=== PATIENT | female | born 1955 | race African-American/Black ===

== ENCOUNTER 2017-07-18 00:02 | Observation (INO) | payer MEDICARE, MEDICAID ==
[~2017-07-18] VITALS: Ht 165.1 cm; Wt 79.8 kg
[~2017-07-18 00:02] MED LIST: ADLT ASA LOW81 MG PO; ASACOL PO; ASPIRIN LOW DOS81 M1 PO; ASPIRIN325 MG PO; AUGMENTIN500TAB PO; BUDESONIDE3 MG/24 HR PO; CALCIUM 600-D1 TAB PO; CIPROFLOXACN500 MG PO; DICLOFENAC SODI75 MG PO; DICLOFENAC75 MG PO; DIFLUCAN100 M1 PO; ENALAPRIL10 MG PO; ESTRACE2 MG PO; FERROUS SULF325 M3 PO; FISH OIL1000 MG PO; FLEXERIL PO; FLEXERIL10 MG PO; LESCOL40 MG PO; LORTAB 7.5 PO; LORTAB 7.5-3251 TAB PO; LORTAB 7.57.5 MG PO; LOTRISONE EX; MEDDOSEPAK PO; METOPROL TAR50 MG PO; METOPROLOL SUCC50 MG PO; METRONIDAZOL500 MG PO; MULTI FOR HER 50+ PO; OMEPRAZOLE20 MG PO; PRAVASTATIN20 MG PO; PREVACID30 M1 PO; TIZANIDINE4 MG PO; TRIAMCINOLON0.11 EX; ULTRAM50 M1 PO; VICODIN ES1 TAB OR; VICODIN ES1 TAB PO; VISTARIL PO; WAL-FEX D 1212 HOUR PO
[2017-07-18 00:53] LABS: ALKALINE PHOSPHATASE 91 u/l (38-126); ANION GAP 14 (6-22 (CALC)); BILIRUBIN, TOTAL 0.4 mg/dL (0.0-1.4); BUN 15 mg/dL (8-23); BUN/CREATININE RATIO 22 (12-20 (CALC)); CARBON DIOXIDE 24 mmol/l (22-30); CHLORIDE 108 mmol/l (95-108); CREATININE 0.7 mg/dL (0.5-1.0); GFR > 60 ML/MIN (>=60 (CALC)); GFR FOR AFR.AMER. > 60 ML/MIN (>=60 (CALC)); POTASSIUM 3.5 mmol/l (3.5-5.1); SGOT/AST 28 u/l (9-36); SGPT/ALT 30 u/l (11-66); SODIUM 142 mmol/l (137-146); TOTAL PROTEIN 6.9 g/dL (6.3-8.2)
[2017-07-18 00:54] LABS: HEMATOCRIT 36.6 % (37.0-47.0); HEMOGLOBIN 11.9 g/dl (12.0-16.0); IMMATURE GRANULOCYTES 0.4 % (0.0-1.0); MEAN CELL VOLUME 82.6 fL CALC (80.0-100.0); MEAN CORPUSCULAR HGB 26.9 pG CALC (26.0-32.0); MEAN CORPUSCULAR HGB CONC 32.5 g/L CALC (32.0-36.0); NEUT# 3.56 thou/uL (2.00-7.15); RED BLOOD COUNT 4.43 mill/uL (4.20-5.60); RED CELL DISTRI WIDTH 14.6 % (11.5-15.5)
[2017-07-18 00:55] LABS: ACT PARTIAL THROMBO TIME 23.1 SECONDS (20.0-32.5); INTERNATIONAL NORMALIZED RATIO 0.9 RATIO (0.7-1.3); PROTHROMBIN TIME 10.1 SECONDS (9.0-12.5)
[2017-07-18 01:07] LABS: MYOGLOBIN 41 ng/mL (0 - 62)
[2017-07-18 03:00] VITALS: BP 112/61
[2017-07-18 06:17] LABS: ALBUMIN 3.6 g/dL (3.2-5.0); ALKALINE PHOSPHATASE 93 u/l (38-126); ANION GAP 12 (6-22 (CALC)); BILIRUBIN, TOTAL 0.3 mg/dL (0.0-1.4); BUN 13 mg/dL (8-23); BUN/CREATININE RATIO 18 (12-20 (CALC)); CALCULATED LDLCHOLESTEROL 120 mg/dL (62-129 (CALC)); CARBON DIOXIDE 26 mmol/l (22-30); CHLORIDE 107 mmol/l (95-108); CHOLESTEROL HDL RATIO 3.6 (<4.4 (CALC)); CREATININE 0.7 mg/dL (0.5-1.0); GFR > 60 ML/MIN (>=60 (CALC)); GFR FOR AFR.AMER. > 60 ML/MIN (>=60 (CALC)); HDL CHOLESTEROL 59 mg/dL (>=40); POTASSIUM 3.8 mmol/l (3.5-5.1); SGOT/AST 28 u/l (9-36); SGPT/ALT 32 u/l (11-66); SODIUM 141 mmol/l (137-146); TOTAL CHOLESTEROL 211 mg/dl (0-199); TOTAL PROTEIN 6.4 g/dL (6.3-8.2); TOTAL TRIGLYCERIDES 163 mg/dl (30-149); VLDL CHOLESTROL 33 mg/dl (1-41 (CALC))
[2017-07-18 07:42] VITALS: BP 137/81
[2017-07-18 11:30] VITALS: BP 142/82
[2017-07-18 16:00] VITALS: BP 146/77
== END 2017-07-18 17:33 | disposition home or self-care (01) ==
LOC: ED 00:02 → ED-I 01:33 → ED 01:45 → ICU 01:46 → UNDODEPER 02:21 → ICU 17:33
PROVIDERS: Emergency Medicine; ADMIT Internal Medicine Geriatric Medicine; ATTEND Internal Medicine Geriatric Medicine
DX: R07.9 Chest pain, unspecified (principal); M25.519 Pain in unspecified shoulder; M54.5 Low back pain; G89.29 Other chronic pain; M19.90 Unspecified osteoarthritis, unspecified site; K27.9 Peptic ulcer, site unspecified, unspecified as acute or chronic, without hemorrhage or perforation; I10 Essential (primary) hypertension; E78.5 Hyperlipidemia, unspecified; K21.9 Gastro-esophageal reflux disease without esophagitis; M85.80 Other specified disorders of bone density and structure, unspecified site; F41.1 Generalized anxiety disorder; R06.02 Shortness of breath

== ENCOUNTER 2017-12-15 05:31 | Emergency (ER) | payer MEDICARE, MEDICAID ==
[~2017-12-15] VITALS: Ht 165.1 cm; Wt 80.0 kg
[2017-12-15] MEDS ORDERED: TRAMADOL HCL50 MG PO (06:38)
[2017-12-15 07:02] VITALS: BP 132/68
== END 2017-12-15 06:55 | disposition home or self-care (01) ==
LOC: ED 05:31
PROC: 3E0U3BZ Introduction of Anesthetic Agent into Joints, Percutaneous Approach (ICD-10-PCS; principal; 2017-12-15)
PROC: 3E0U33Z Introduction of Anti-inflammatory into Joints, Percutaneous Approach (ICD-10-PCS; 2017-12-15)
DX: M25.561 Pain in right knee (principal); M17.11 Unilateral primary osteoarthritis, right knee; I10 Essential (primary) hypertension; E78.5 Hyperlipidemia, unspecified; W01.0XXA Fall on same level from slipping, tripping and stumbling without subsequent striking against object, initial encounter; Y92.009 Unspecified place in unspecified non-institutional (private) residence as the place of occurrence of the external cause

== ENCOUNTER 2018-05-15 10:02 | Inpatient (IN) | payer MEDICARE, MEDICAID ==
[~2018-05-15] VITALS: Ht 165.1 cm; Wt 81.2 kg
[~2018-05-15 10:02] MED LIST changes: +TRAMADOL HCL50 MG PO
[2018-05-15] MEDS ORDERED: FISH OIL PO (14:33)
[2018-05-15] MEDS ORDERED: OMEGA PO (14:33)
[2018-05-15] MEDS ORDERED: PRAVASTATIN SOD10 MG PO (14:34)
[2018-05-15] MEDS ORDERED: TOPROL XL25 MG PO (14:34)
[2018-05-15] MEDS ORDERED: OMEGA 3 GUMMIES PO (14:38)
[2018-05-15] MEDS ORDERED: TIZANIDINE HCL4 M1 PO (14:38)
[2018-05-15] MEDS ORDERED: OMEPRAZOLE20 M2 PO (14:39)
[2018-05-25] VITALS (8 sets, daily range): BP systolic 109–153; BP diastolic 48–83
--- NOTE | 2018-05-25 14:05 | NUR ---
PT WAS TOO GROGGY, REFUSED TO PARTICIPATE WITH P.T. ASSESSMENT.
--- NOTE | 2018-05-25 15:01 | NUR ---
Clarified patients metoprolol medication. Patient stated she was on Toprol 25 mg once daily.
--- NOTE | 2018-05-25 15:33 | NUR ---
BEDSIDE REPORT RECEIVED FROM MARY ANN HOLMAN ARRIVED ON UNIT VIA STRETCHER @ 1115 AND TRANSFERRED TO BED. ORIENTED AND LETHARGIC, ORIENTED TO ROOM AND CALL ZIMMERMAN. DRESSING TO RIGHT KNEE CDI, LEG ELEVATED ON PILLOWS, ICE PACK PLACED, SCD PLACED. VITAL SIGNS BEING MEASURED AND RECORDED, WILL CONTINUE TO MONITOR.
--- NOTE | 2018-05-25 15:37 | NUR ---
ASSISTED WITH BLADDRE ELIMINATION X 4 SINCE ARRIVAL TO UNIT, CALL ZIMMERMAN IN REACH.
--- NOTE | 2018-05-25 20:30 | NUR ---
ASSESSMENT IS COMPLETED: IV SITE IS FREE FROM REDNESS OR EDEMA. HR IS REG,PULSES ARE STRONG X4, ABD IS SOFT WITH ACTIVE BS. BREATH SOUNDS ARE CLEAR, BILATERALLY. DRESSING ON R KNEE IS CDI. SCD'S IN PLACE. C/O NAUSEA AT BEGINNING OF SHIFT WAS PREVIOUSLY MEDICATED. CONTINUE TO OBSERVE AND MONITOR.
--- NOTE | 2018-05-26 00:15 | NUR ---
PT IS RELAXING IN BED WITH NO DISTRESS NOTED. IV SITE IS FREE FROM REDNESS OR EDEMA. CONTINUE TO OBSERVE AND MONITOR.
[2018-05-26 00:29] VITALS: BP 153/69
--- NOTE | 2018-05-26 04:12 | NUR ---
PT IS RELAXING GAVE PAIN MEDICATION EARLIER ., IV SITE IS FREE FROM REDNESS OR EDEMA.
[2018-05-26 04:45] VITALS: BP 112/70
[2018-05-26 05:13] LABS: HEMATOCRIT 32.9 % (37.0-47.0); HEMOGLOBIN 10.6 g/dl (12.0-16.0); IMMATURE GRANULOCYTES 0.3 % (0.0-5.0); MEAN CORPUSCULAR HGB 26.4 pG CALC (26.0-32.0); MEAN CORPUSCULAR HGB CONC 32.2 g/L CALC (32.0-36.0); NEUT# 5.13 thou/uL (2.00-7.15); RED BLOOD COUNT 4.01 mill/uL (4.20-5.60); RED CELL DISTRI WIDTH 14.1 % (11.5-15.5)
[2018-05-26 05:31] LABS: ALBUMIN 3.3 g/dL (3.2-5.0); ALKALINE PHOSPHATASE 67 u/l (38-126); ANION GAP 13 (6-22 (CALC)); BILIRUBIN, TOTAL 0.5 mg/dL (0.0-1.4); BUN 14 mg/dL (8-23); BUN/CREATININE RATIO 27 (12-20 (CALC)); CARBON DIOXIDE 27 mmol/l (22-30); CHLORIDE 99 mmol/l (95-108); CREATININE 0.5 mg/dL (0.5-1.0); GFR > 60 ML/MIN (>=60 (CALC)); GFR FOR AFR.AMER. > 60 ML/MIN (>=60 (CALC)); POTASSIUM 3.7 mmol/l (3.5-5.1); SGOT/AST 17 u/l (9-36); SODIUM 136 mmol/l (137-146); TOTAL PROTEIN 5.9 g/dL (6.3-8.2)
--- NOTE | 2018-05-26 07:20 | NUR ---
PT REPORT RECIEVED FROM GARRET FINCH. PT RESTING. NO S/S OF DISTRES. CALL LIGHT IN REACH. WILL CONTINUE TO MONITOR
[2018-05-26 08:11] VITALS: BP 137/54
--- NOTE | 2018-05-26 08:11 | NUR ---
PT A/O X3. SPEECH IS CLEAR. RESP EVEN AND UNLABORED. LUNG SOUNDS CLEAR. BOWEL SOUNDS ACTIVE X4. PT C/O NAUSEA. MEDICATED W/ 4 MG ZOFRAN IV. PT ALSO C/O THROBBING RT KNEE PAIN. MEDICATED W/ 1 MG DILAUDID IV. ICE APPLIED TO RT KNEE. STRONG RADIAL AND PEDAL PULSES. #20 LW LR @100. SITE HEALTHY. PT DENIES ANY FURTHER NEEDS. POC DISCUSSED. SAFETY PRECAUTIONS IN PLACE. CALL LIGHT IN REACH. WILL CONTINUE TO MONITOR.
--- NOTE | 2018-05-26 08:26 | NUR ---
DR. NAVA IN TO SEE PT
--- NOTE | 2018-05-26 14:38 | NUR ---
Pt was OOb in chair, stated she had been sittin for about 2 hours. She requested [facility] chair. Transfer to [facility] with RW and CGA. Pt required instructions in walker use, she did not bear much wt onto RLE. Pt stood with min assist and use walker move back to bed. Sit to supine with kenny min assist of RLE. Pt performed AAROM and isometrics in bed to RLE. Pt positioned appropriately with compression on LLE, call strong in reach, family in visiting.
--- NOTE | 2018-05-26 15:02 | NUR ---
PT MEDICATED W/ 2 PERCOCET PO FOR 10 OUT OF 10 PAIN TO RT KNEE. REPOSITIONED FOR COMFORT. PT DENIES ANY FURTHER NEEDS. CALL LIGHT IN REACH. WILL CONTINUE TO MONITOR.
--- NOTE | 2018-05-26 16:24 | NUR ---
PT SITTING IN BED LISTENING TO MUSIC. PT DOES HAVE MINIMAL PAIN TO RT KNEE. ICE APPLIED AND REPOSITIONED FOR COMFORT. PT DENIES ANY FURTHER NEEDS. CALL LIGHT IN REACH. BSC NEAR BED. WILL CONTINUE TO MONITOR.
[2018-05-26 16:52] VITALS: BP 157/85
[2018-05-26 19:10] VITALS: BP 155/76
--- NOTE | 2018-05-26 19:45 | NUR ---
ASSESSMENT IS COMPLETED: IV SITE IS FREE FROM REDNESS OR EDEMA. HR IS REG,PULSES ARE STRONG X4, ABD IS SOFT WITH ACTIVE BS. HR IS REG, BREATH SOUNDS ARE CLEAR, BILATERALLY, DRESSING ON R KNEE IS CDI. SCD'S IN PLACE. CONTINUE TO OBSERVE AND MONITOR.
[2018-05-27 00:05] VITALS: BP 87/43
--- NOTE | 2018-05-27 00:30 | NUR ---
PT IS RESTING IN BED WITH NO DISTRESS NOTED. IV SITE IS FREE FROM REDNESS OR EDEMA NOTED. CONITUE TO OSBERVE AND MONITOR.
--- NOTE | 2018-05-27 04:10 | NUR ---
PT IS RESTING IN BED WITH NO DISTRESS NOTED. IV SITE IS FREE FROM REDNESS OR EDEMA.
[2018-05-27 04:15] VITALS: BP 102/55
[2018-05-27 05:39] LABS: HEMATOCRIT 31.4 % (37.0-47.0); IMMATURE GRANULOCYTES 0.4 % (0.0-5.0); MEAN CELL VOLUME 83.3 fL CALC (80.0-100.0); MEAN CORPUSCULAR HGB 26.5 pG CALC (26.0-32.0); MEAN CORPUSCULAR HGB CONC 31.8 g/L CALC (32.0-36.0); NEUT# 5.67 thou/uL (2.00-7.15); RED BLOOD COUNT 3.77 mill/uL (4.20-5.60); RED CELL DISTRI WIDTH 14.3 % (11.5-15.5)
[2018-05-27 06:16] LABS: ANION GAP 13 (6-22 (CALC)); BUN 18 mg/dL (8-23); BUN/CREATININE RATIO 18 (12-20 (CALC)); CARBON DIOXIDE 29 mmol/l (22-30); CHLORIDE 97 mmol/l (95-108); GFR 56 ML/MIN (>=60 (CALC)); GFR FOR AFR.AMER. > 60 ML/MIN (>=60 (CALC)); POTASSIUM 4.1 mmol/l (3.5-5.1); SODIUM 136 mmol/l (137-146)
--- NOTE | 2018-05-27 07:00 | NUR ---
SHIFT REPORT, PT AWAKE AND ALERT RESTING IN BED, NO C/O DISCOMFORT, DRESSING TO RIGHT KNEE CDI, CALL ZIMMERMAN IN REACH.
--- NOTE | 2018-05-27 12:00 | NUR ---
SITTING UP IN RECLINER, NAUSEA IMPROVING, WILL CONTINUE TO MONITOR.
[2018-05-27 12:40] VITALS: BP 137/57
--- NOTE | 2018-05-27 15:07 | NUR ---
AM note: Pt was supine in bed having finished breakfast. Pt reported she is not taking pain medicine since 3 AM as they have been making her sick. Pt acknolwedged that she has been performing her HEP program that was given to her yesterday (05-26-18). Pt was eager to begin walking and was educated on proper S<>S techniwue as well as RW usage. Pt with noted 15-70 deg ROM. Pt was cued on S<>S for hand placement on her bed as well as on the walker while using it. Pt required MIN A to perform proper S<>S. She was able to ambualte 35 ft x 2 with a rest break in between for 20 seconds. Pt was returned to her bed side chair and her call strong was provided. Pt ed on HEP program and performing bed sheet heel slides in bed or in chair. PM note: Pt was supine in her bed, reported that she was feeling better and she was performing her HEP program.Pt ed on S<>S and was CGA to perform safely, VC's used for correction. Pt was able to ambulate 50 ft x 2 with a rest break of 10 seconds in between. Pt wished to return to her bed for a nap. Pt was placed supine in her bed and was able to transfer from stand to supine with CGA, pt was in her bed supine with call strong and phone by her side. Pt to continue with HEP program and gait training.
[2018-05-27 15:15] VITALS: BP 114/51
--- NOTE | 2018-05-27 16:00 | NUR ---
ASSISTED TO BSC THEN BACK TO BED, PAIN CONCERNS ADDRESSED, CALL ZIMMERMAN IN REACH.
[2018-05-27 19:05] VITALS: BP 146/75
--- NOTE | 2018-05-27 19:30 | NUR ---
REPORT FROM SIMON LEIJA. PT SITTING UP IN BED WITH RIGHT LEG ELEVATED ON PILLOW. PT DENIES ANY PAIN OR DISCOMFORT. DRESSING CDI, REMOVED AT THIS TIME. INCISION SECURED WITH DERMABOND, NO DRAINAGE OR REDNESS NOTED. +1 PITTING EDEMA NOTED TO RLE. IV SITE APPEARS HEALTHY. PT DENIES ANY NAUSEA. DISCUSSED POC. PT VERBALIZED UNDERSTANDING. CALL LIGHT WITHIN REACH. WILL CONTINUE TO MONITOR.
--- NOTE | 2018-05-27 21:08 | NUR ---
PT REQUEST ICE PACK FOR RIGHT KNEE AND CRACKERS. PT DENIES ANY NAUSEA AT THIS TIME. ENCOURAGED PT TO KEEP RLE ELEVATED. CALL LIGHT WTIHIN REACH. WILL CONTINUE TO MONITOR.
[2018-05-27 23:35] VITALS: BP 83/50
--- NOTE | 2018-05-28 03:34 | NUR ---
PT ASSISTED TO BSC. PT VOIDED WITHOUT DIFFICULTY. ASSISTED BACK TO BED X1 PERSON ASSIST. PT DENIES ANY PAIN AT THIS TIME. CALL LIGHT WITHIN REACH. WILL CONTINUE TO MONITOR.
[2018-05-28 04:05] VITALS: BP 111/64
--- NOTE | 2018-05-28 08:13 | NUR ---
SHIFT CHANGE REPORT, PT AWAKE ALERT AND ORIENTED SITTING UP IN RECLINER. DENIES PAIN AT THIS TIME, SURGICAL INCISION TO RIGHT KNEE EXERCISER WITH DERMABOND INTACT, ALL NEEDS ADDRESSED, CALL ZIMMERMAN IN REACH.
[2018-05-28 08:24] VITALS: BP 136/71
--- NOTE | 2018-05-28 09:13 | NUR ---
Patient found resting in recliner and in agreement to participate in therapeutic exercises and gait training. Pt. instructed on and performed AROM of toes, ankle PF/DF, quad sets, LAQ exercises, low marching and heel slides x 10 repetitions each with direct supervision and continual verbal/tactile cues. Sit to stand to RW done with CGA, good safety awareness is noted. Pt. ambulated x 50 feet using RW and with CGA x1 demonstarting step to pattern. Verbal cues given to correct stooped posture. Patient took 2 minute seated rest period followed by gait training x 50 feet using RW and with CGA x1 this time with verbal cues for step through gait pattern. No LOB and no SOB noted. Pt. returned to sitting in recliner with call light and bedside table within reach. Patient left without questions or concerns.
[2018-05-28 11:15] VITALS: BP 75/48
--- NOTE | 2018-05-28 11:19 | NUR ---
AMBULATED TO END OF HALLWAY WITH PHYSICAL THERAPIST AND BACK TO ROOM, RELAXING IN RECLINER AT THIS TIME.
--- NOTE | 2018-05-28 14:02 | NUR ---
Pt seen this pm for treatment. She was OOB in chair and stated she did not like being in bed because it makes you weak. Pt performed A/AAROM to RLE in recline and sitting positions. She stood and ambulated with standard walker/CGA x 75' with verrbal cues for proper step lenght. Pt wt bearing on RLE much better. Pt repositioned in recliner and call strong/bedside tray in reach.
[2018-05-28 14:50] VITALS: BP 80/51
--- NOTE | 2018-05-28 16:00 | NUR ---
RELAXING IN BED, TOLERATING SOLID MEALS WELL, PAIN CONTROLLED, ALL NEEDS MET/ADDRESSED.
[2018-05-28 19:00] VITALS: BP 141/66
--- NOTE | 2018-05-28 19:15 | NUR ---
REPORT FROM SIMON LEIJA. PT SITTING UP IN BED WITH RLE ELEVATED ON PILLOW. PT ALERT AND ORIENTED. IV SITE APPEARS HEALTHY. INCISION SECURED WITH DERMABOND NO REDNESS OR DRAINAGE NOTED. SCD ON LLE. C/O SOME DISCOMFORT IN RIGHT KNEE. PT ASSISTED UP TO BSC. PT VOIDED 250 CLEAR YELLOW URINE AT THIS TIME. ASSISTED BACK TO BED AND REPOSITIONED. DISCUSSED POC. PT VERBALIZED UNDERSTANDING. CALL LIGHT WITHIN REACH. WILL CONTINUE TO MONITOR.
--- NOTE | 2018-05-28 23:30 | NUR ---
PT RESTING IN BED WITH EYES CLOSED. RLE ELEVATED ON PILLOW. NO S/S OF PAIN OR DISCOMFORT. CALL LIGHT WITHIN REACH. WILL CONTINUE TO MONITOR.
[2018-05-29 00:30] VITALS: BP 108/51
[2018-05-29 04:14] VITALS: BP 98/60
--- NOTE | 2018-05-29 04:30 | NUR ---
PT ASSISTED TO BSC. PT VOIDED WITHOUT DIFFICULTY. ASSISTED BACK TO BED RLE ELEVATED ON PILLOW. PT C/O PAIN 6-10 RLE. WILL MEDICATED WHEN NEXT AVAILABLE DUE. CALL LIGHT WITHIN REACH. WILL CONTINUE TO MONITOR.
[2018-05-29 08:05] VITALS: BP 134/65
--- NOTE | 2018-05-29 08:20 | NUR ---
PT IS SITTING IN RECLINER. ASESSMENT DONE. RESPS EVEN AND UNLABORED. PT IS A&O X3. PT DENIES PAIN AT THIS TIME. RIGHT KNEE DERMANDOND IN PLACE CDI. PT DENIES ANY NEEDS AT THIS TIME. CALL LIGHT IN REACH.
--- NOTE | 2018-05-29 11:34 | NUR ---
PHYSICAL THERAPY AMBULATING PT IN THE HALLWAY. PT USING WALKER AND NO S/S OF DISTRESS NOTED.
--- NOTE | 2018-05-29 12:30 | NUR ---
Pt. found resting in recliner this morning and in agreement to proceed with therapeutic exercises and gait training. In sitting pt. performed AROM toes, ankle PF/DF, quad. sets, LAQ exercises, and AAROM heel slides x 10 repetitions each with direct supervision and verbal encouragement. Gait belt applied prior to gait training. Sit to stand done safely with supervision. Pt. ambulated x80 feet using standard walker with CGA x1 and verbal cues for step through gait pattern. Good postural awareness is noted. No LOB and no SOB noted. Stand to sit done again with supervision. Pt. left resting comfortably in recliner with LE's elevated, attending nurse informed of pts. request for pain medications and lunch. No further questions or concerns from pt. voiced. Bedside table left within reach, call light reviewed and also left within reach.
--- NOTE | 2018-05-29 14:10 | NUR ---
Pt. seen this PM for therapeutic exercises and gait training. Pt. reports working on R heel slides a few minutes ago. In recliner exercises reviewed and performed included AROM toes, ankle PF/DF, Quad sets, AAROM heel slides with use of towel and seated marching x 10 repetitions. Seated R knee flexion measured 70 degrees. Sit to stand with supervision. Pt. ambulated hallway x100 feet using standard walker and with light CGA x1, no LOB. Pt. requested use of BSC once back in room, stand to sit done safely with supervision. Nurse informed of same, pt. instructed to call nurse for assistance with getting up from BSC and [facility]. Pt. verbalized understanding and was left without questions or concerns. Attending DIRECTOR DIETETICS DEPARTMENT also informed.
[2018-05-29 15:49] VITALS: BP 132/76
--- NOTE | 2018-05-29 16:30 | NUR ---
PT SITTING IN THE RECLINER. ASISSTED PT TO THE BSC. FAMILY IN ROOM . PT DENIES ANY OTHER NEEDS AT THIS TIME. CALL LIGHT IN REACH.
--- NOTE | 2018-05-29 19:00 | NUR ---
RECEIVED REPORT FROM DAY NURSE. PT RESTING IN BED WATCHING TV. NO NEEDS AT THIS TIME. CALL ZIMMERMAN IN REACH. WILL CONTINUE TO MONITOR.
[2018-05-29 20:20] VITALS: BP 184/76
--- NOTE | 2018-05-29 21:18 | NUR ---
PT RESTING IN BED WATCHING TV AND TALKING TO SOMEONE ON SPEAKER PHONE. ASSESMENT COMPLETED AT THIS TIME (SEE INTERVENTIONS) LUNG SOUNDS CLEAR, BOWEL SPOND ACTIVE, HEART RATE NORMAL, PT C/O PAIN 9/10 PAIN. TRACE EDEMA NOTED TO RIGHT LEG. PT MEDICATED PER ORDER FOR PAIN. NO OTHER NEEDS AT THIS TIME. CALL ZIMMERMAN IN REACH. WILL CONTINUE TO MONITOR.
[2018-05-29 22:29] VITALS: BP 131/74
--- NOTE | 2018-05-30 | NUR ---
PT RESTING QUIETLY IN BED. NO NEEDS AT THIS TIME. CALL ZIMMERMAN IN REACH. WILL CONTINUE TO MONITOR.
[2018-05-30 00:09] VITALS: BP 128/76
--- NOTE | 2018-05-30 04:00 | NUR ---
PT APPEARS TO BE ASLEEP. RESP EVEN AND UNLABORED. CALL ZIMMERMAN IN REACH. WILL CONTINUE TO MONITOR.
[2018-05-30 04:08] VITALS: BP 119/61
[2018-05-30 06:29] LABS: HEMATOCRIT 25.8 % (37.0-47.0); HEMOGLOBIN 8.1 g/dl (12.0-16.0); IMMATURE GRANULOCYTES 0.2 % (0.0-5.0); MEAN CELL VOLUME 83.5 fL CALC (80.0-100.0); MEAN CORPUSCULAR HGB 26.2 pG CALC (26.0-32.0); MEAN CORPUSCULAR HGB CONC 31.4 g/L CALC (32.0-36.0); NEUT# 3.58 thou/uL (2.00-7.15); RED BLOOD COUNT 3.09 mill/uL (4.20-5.60); RED CELL DISTRI WIDTH 14.2 % (11.5-15.5)
[2018-05-30 06:40] LABS: ANION GAP 11 (6-22 (CALC)); BUN 18 mg/dL (8-23); BUN/CREATININE RATIO 31 (12-20 (CALC)); CARBON DIOXIDE 28 mmol/l (22-30); CHLORIDE 102 mmol/l (95-108); CREATININE 0.6 mg/dL (0.5-1.0); GFR > 60 ML/MIN (>=60 (CALC)); GFR FOR AFR.AMER. > 60 ML/MIN (>=60 (CALC)); MAGNESIUM 1.8 mg/dL (1.6-2.3); POTASSIUM 3.6 mmol/l (3.5-5.1); SODIUM 137 mmol/l (137-146)
--- NOTE | 2018-05-30 08:10 | NUR ---
SHIFT REPORT, PT AWAKE ALERT AND ORIENTED HAVING SHOWER AT THIS TIME, WILL CONTINUE TO MONITOR.
[2018-05-30 08:57] VITALS: BP 135/71
--- NOTE | 2018-05-30 11:35 | NUR ---
SITTING UP IN RECLINER, ALL NEEDS MET/ADDRESSED, CALL ZIMMERMAN IN REACH
[2018-05-30] MEDS ORDERED: ASPIRIN EC325 MG PO (12:17)
[2018-05-30] MEDS ORDERED: PERCOCET 10/31 COMBO PO (12:19)
[2018-05-30 16:14] VITALS: BP 139/74
--- NOTE | 2018-05-30 16:52 | NUR ---
REPORT CALLED TO LISS NIEVES @ [facility], PT IS STILL AWAITING TRANSPORTATION [facility] WAS DELAYED FOR HER 1300 TRIP DUE TO ANOTHER URGENT SITUATION THAT HAD TO BE ADDRESSED, WILL CONTINUE TO MONITOR.
--- NOTE | 2018-05-30 19:22 | NUR ---
Discharge instructions given. Patient verbalizes understanding of same. Discharged in fair condition via Medical Transport to *Other with *Other. All belongings sent with pt WITH [facility] TO [facility]. MEDICAL PACKAGE ALSO GIVEN [facility].
== END 2018-05-30 19:29 | DRG 470 ==
LOC: MS2 05-25 05:49
PROVIDERS: Internal Medicine Geriatric Medicine; Nurse Practitioner Family; ADMIT Orthopaedic Surgery; ATTEND Internal Medicine Nephrology
PROC: 0SRC0J9 Replacement of Right Knee Joint with Synthetic Substitute, Cemented, Open Approach (ICD-10-PCS; principal; 2018-05-25)
PROC: 3E0T3BZ Introduction of Anesthetic Agent into Peripheral Nerves and Plexi, Percutaneous Approach (ICD-10-PCS; 2018-05-25)
DX: M17.11 Unilateral primary osteoarthritis, right knee (principal); I10 Essential (primary) hypertension; K21.9 Gastro-esophageal reflux disease without esophagitis; K27.9 Peptic ulcer, site unspecified, unspecified as acute or chronic, without hemorrhage or perforation; F41.9 Anxiety disorder, unspecified; K59.03 Drug induced constipation; T40.2X5A Adverse effect of other opioids, initial encounter
CPT/HCPCS: J0131

== ENCOUNTER → 2018-07-22 15:00 | Outpatient (RCR) | payer MEDICARE, MEDICAID ==
[~2018-07-22 15:00] MED LIST changes: +ASPIRIN EC325 MG PO; +FISH OIL PO; +OMEGA 3 GUMMIES PO; +OMEGA PO; +OMEPRAZOLE20 M2 PO; +PERCOCET 10/31 COMBO PO; +PRAVASTATIN SOD10 MG PO; +TIZANIDINE HCL4 M1 PO; +TOPROL XL25 MG PO
== END | disposition home or self-care (01) ==
LOC: PT 06-12 15:00
DX: R26.0 Ataxic gait (principal)

== ENCOUNTER 2018-08-28 02:39 | Emergency (ER) | payer MEDICARE, MEDICAID ==
[~2018-08-28] VITALS: Ht 165.1 cm; Wt 79.0 kg
[2018-08-28 03:28] LABS: HEMATOCRIT 35.5 % (37.0-47.0); HEMOGLOBIN 10.9 g/dl (12.0-16.0); IMMATURE GRANULOCYTES 0.1 % (0.0-5.0); MEAN CELL VOLUME 81.1 fL CALC (80.0-100.0); MEAN CORPUSCULAR HGB 24.9 pG CALC (26.0-32.0); MEAN CORPUSCULAR HGB CONC 30.7 g/L CALC (32.0-36.0); NEUT# 2.82 thou/uL (2.00-7.15); RED BLOOD COUNT 4.38 mill/uL (4.20-5.60); RED CELL DISTRI WIDTH 14.5 % (11.5-15.5)
[2018-08-28 03:29] LABS: URINE BILIRUBIN - DIPSTICK NEGATIVE (NEGATIVE); URINE BLOOD DIPSTICK SMALL (NEGATIVE); URINE COLOR YELLOW; URINE GLUCOSE - DIPSTICK NEGATIVE (NEGATIVE); URINE KETONE NEGATIVE (NEGATIVE); URINE LEUK ESTERASE NEGATIVE (NEGATIVE); URINE NITRITE - DIPSTICK NEGATIVE (Negative); URINE PROTEIN - DIPSTICK NEGATIVE (NEG-TRACE)
[2018-08-28 03:36] LABS: URINE BACTERIA FEW hpf; URINE RBC 0-2 RBC/hpf (0-5); URINE SQUAMOUS EPITHELIAL CELL FEW EPI/hpf (0-FEW); URINE WBC 0-2 WBC/hpf (0-5)
[2018-08-28 03:38] LABS: ALKALINE PHOSPHATASE 90 u/l (38-126); AMYLASE 57 u/l (30-110); ANION GAP 12 (6-22 (CALC)); BILIRUBIN, TOTAL 0.3 mg/dL (0.0-1.4); BUN 16 mg/dL (8-23); BUN/CREATININE RATIO 28 (12-20 (CALC)); CARBON DIOXIDE 28 mmol/l (22-30); CHLORIDE 102 mmol/l (95-108); CREATININE 0.6 mg/dL (0.5-1.0); GFR > 60 ML/MIN (>=60 (CALC)); GFR FOR AFR.AMER. > 60 ML/MIN (>=60 (CALC)); LIPASE 36 u/l (23-300); POTASSIUM 3.5 mmol/l (3.5-5.1); SGOT/AST 16 u/l (9-36); SODIUM 139 mmol/l (137-146); TOTAL PROTEIN 6.8 g/dL (6.3-8.2)
[2018-08-28 04:30] VITALS: BP 156/82
[2018-08-28] MEDS ORDERED: IBUPROFEN600 MG PO (04:41)
[2018-08-28] MEDS ORDERED: ORPHENADRINE100 MG PO (04:41)
== END 2018-08-28 04:53 | disposition home or self-care (01) ==
LOC: ED 02:39
PROVIDERS: Emergency Medicine
DX: M54.5 Low back pain (principal); M47.816 Spondylosis without myelopathy or radiculopathy, lumbar region
CPT/HCPCS: Q9967

== ENCOUNTER 2018-10-20 03:49 | Emergency (ER) | payer MEDICARE, MEDICAID ==
[~2018-10-20] VITALS: Ht 165.1 cm; Wt 79.0 kg
[~2018-10-20 03:49] MED LIST changes: +IBUPROFEN600 MG PO; +ORPHENADRINE100 MG PO
[2018-10-20 04:29] LABS: HEMOGLOBIN 10.9 g/dl (12.0-16.0); IMMATURE GRANULOCYTES 0.1 % (0.0-5.0); MEAN CELL VOLUME 80.6 fL CALC (80.0-100.0); MEAN CORPUSCULAR HGB 25.1 pG CALC (26.0-32.0); MEAN CORPUSCULAR HGB CONC 31.1 g/L CALC (32.0-36.0); NEUT# 2.79 thou/uL (2.00-7.15); RED BLOOD COUNT 4.34 mill/uL (4.20-5.60); RED CELL DISTRI WIDTH 15.5 % (11.5-15.5)
[2018-10-20 04:30] LABS: URINE BILIRUBIN - DIPSTICK NEGATIVE (NEGATIVE); URINE BLOOD DIPSTICK SMALL (NEGATIVE); URINE COLOR YELLOW; URINE GLUCOSE - DIPSTICK NEGATIVE (NEGATIVE); URINE KETONE NEGATIVE (NEGATIVE); URINE LEUK ESTERASE NEGATIVE (NEGATIVE); URINE NITRITE - DIPSTICK NEGATIVE (Negative); URINE PH 5.5 (4.5-8.0); URINE PROTEIN - DIPSTICK NEGATIVE (NEG-TRACE); URINE UROBILINOGEN - DIPSTICK 0.2 E.U./dL (0.2)
[2018-10-20] MEDS ORDERED: ASPIRIN 81 LOW81 MG PO (04:31)
[2018-10-20 04:38] LABS: URINE SQUAMOUS EPITHELIAL CELL FEW EPI/hpf (0-FEW)
[2018-10-20 04:47] LABS: ALBUMIN 4.3 g/dL (3.2-5.0); ALKALINE PHOSPHATASE 81 u/l (38-126); AMYLASE 55 u/l (30-110); ANION GAP 13 (6-22 (CALC)); BILIRUBIN, TOTAL 0.8 mg/dL (0.0-1.4); BUN 17 mg/dL (8-23); BUN/CREATININE RATIO 25 (12-20 (CALC)); CARBON DIOXIDE 29 mmol/l (22-30); CHLORIDE 101 mmol/l (95-108); CREATININE 0.7 mg/dL (0.5-1.0); GFR > 60 ML/MIN (>=60 (CALC)); GFR FOR AFR.AMER. > 60 ML/MIN (>=60 (CALC)); LIPASE 25 u/l (23-300); POTASSIUM 3.8 mmol/l (3.5-5.1); SGOT/AST 19 u/l (9-36); SODIUM 138 mmol/l (137-146); TOTAL PROTEIN 7.3 g/dL (6.3-8.2)
[2018-10-20] MEDS ORDERED: LORTAB 1010 MG PO (06:05)
[2018-10-20] MEDS ORDERED: PYRIDIUM200 MG PO (06:05)
[2018-10-20] MEDS ORDERED: CEPHALEXIN500 M1 PO (06:05)
[2018-10-20] MEDS ORDERED: FLEXERIL PO (06:08)
[2018-10-20 06:14] VITALS: BP 143/74
== END 2018-10-20 06:20 | disposition home or self-care (01) ==
LOC: ED 03:49
PROVIDERS: Emergency Medicine
DX: M54.40 Lumbago with sciatica, unspecified side (principal); N30.90 Cystitis, unspecified without hematuria; I10 Essential (primary) hypertension

== ENCOUNTER 2018-11-18 09:21 | Emergency (ER) | payer MEDICARE, MEDICAID ==
[~2018-11-18] VITALS: Ht 165.1 cm; Wt 77.3 kg
[~2018-11-18 09:21] MED LIST changes: +ASPIRIN 81 LOW81 MG PO; +CEPHALEXIN500 M1 PO; +LORTAB 1010 MG PO; +PYRIDIUM200 MG PO
[2018-11-18 10:01] LABS: HEMATOCRIT 38.7 % (37.0-47.0); HEMOGLOBIN 12.2 g/dl (12.0-16.0); IMMATURE GRANULOCYTES 0.5 % (0.0-5.0); MEAN CELL VOLUME 82.5 fL CALC (80.0-100.0); MEAN CORPUSCULAR HGB CONC 31.5 g/L CALC (32.0-36.0); NEUT# 6.48 thou/uL (2.00-7.15); RED BLOOD COUNT 4.69 mill/uL (4.20-5.60); RED CELL DISTRI WIDTH 16.7 % (11.5-15.5)
[2018-11-18 10:20] LABS: ALBUMIN 4.1 g/dL (3.2-5.0); ALKALINE PHOSPHATASE 79 u/l (38-126); AMYLASE 117 u/l (30-110); ANION GAP 12 (6-22 (CALC)); BILIRUBIN, TOTAL 0.6 mg/dL (0.0-1.4); BUN 16 mg/dL (8-23); BUN/CREATININE RATIO 25 (12-20 (CALC)); CARBON DIOXIDE 28 mmol/l (22-30); CHLORIDE 102 mmol/l (95-108); CREATININE 0.6 mg/dL (0.5-1.0); GFR > 60 ML/MIN (>=60 (CALC)); GFR FOR AFR.AMER. > 60 ML/MIN (>=60 (CALC)); LIPASE 236 u/l (23-300); POTASSIUM 3.6 mmol/l (3.5-5.1); SGOT/AST 22 u/l (9-36); SODIUM 138 mmol/l (137-146); TOTAL PROTEIN 7.2 g/dL (6.3-8.2)
[2018-11-18 10:26] LABS: ACT PARTIAL THROMBO TIME 21.8 SECONDS (20.0-32.5); D-DIMER 0.81 mg/L (0.19-0.60); PROTHROMBIN TIME 10.4 SECONDS (9.0-12.5)
[2018-11-18 10:33] LABS: MYOGLOBIN 50 ng/mL (0 - 62)
[2018-11-18 12:56] VITALS: BP 178/81
== END 2018-11-18 12:56 | disposition home or self-care (01) ==
LOC: ED 09:21
PROVIDERS: Family Medicine
DX: K21.9 Gastro-esophageal reflux disease without esophagitis (principal); F41.9 Anxiety disorder, unspecified; I10 Essential (primary) hypertension; R07.9 Chest pain, unspecified
CPT/HCPCS: J2060

== ENCOUNTER 2023-01-24 23:27 | Emergency (ER) | payer MEDICARE, MEDICAID ==
[~2023-01-24] VITALS: Ht 165.1 cm; Wt 78.9 kg
[~2023-01-24 23:27] MED LIST changes: +MOTRIN800 MG PO; +OXYCODO-APAP1 TA2 PO
[2023-01-25 00:41] VITALS: BP 194/99
[2023-01-25 00:45] VITALS: BP 177/89
[2023-01-25] MEDS ORDERED: OMEPRAZOLE DR40 MG PO (00:51)
[2023-01-25] MEDS ORDERED: XTAMPZA ER9 MG PO (00:52)
[2023-01-25 01:00] VITALS: BP 182/93
[2023-01-25 01:22] LABS: BASO% 0.2 % (0-3); EOS% 2.7 % (0-8); HEMATOCRIT 38.9 % (37.0-47.0); HEMOGLOBIN 12.3 g/dl (12.0-16.0); IMMATURE GRANULOCYTES 0.2 % (0.0-5.0); LYMPH% 26.2 % (15-41); MEAN CELL VOLUME 83.5 fL CALC (80.0-100.0); MEAN CORPUSCULAR HGB 26.4 pG CALC (26.0-32.0); MEAN CORPUSCULAR HGB CONC 31.6 g/dL CAL (32.0-36.0); MONO% 11.9 % (2-13); NEUT# 5.35 thou/uL (2.00-7.15); NEUT% 58.8 % (42-76); RED BLOOD COUNT 4.66 mill/uL (4.20-5.60); RED CELL DISTRI WIDTH 14.4 % (11.5-15.5)
[2023-01-25 01:36] LABS: ALBUMIN 4.4 g/dL (3.2-5.0); ALKALINE PHOSPHATASE 80 u/l (38-126); ANION GAP 10 (6-22 (CALC)); BUN 13 mg/dL (8-23); BUN/CREATININE RATIO 28 (12-20 (CALC)); CARBON DIOXIDE 26 mmol/l (22-30); CHLORIDE 104 mmol/l (95-108); CREATININE 0.5 mg/dL (0.5-1.0); GFR FOR AFR.AMER. > 60 ML/MIN (>=60 (CALC)); GFR OTHER RACES > 60 ML/MIN (>=60 (CALC)); POTASSIUM 4.3 mmol/l (3.5-5.1); SODIUM 135 mmol/l (137-146); TOTAL PROTEIN 7.8 g/dL (6.3-8.2)
[2023-01-25 01:39] LABS: BILIRUBIN, TOTAL 0.8 mg/dL (0.02-1.3); SGOT/AST 47 u/l (9-36)
[2023-01-25] MEDS ORDERED: ULTRAM50 MG PO (03:54)
[2023-01-25] MEDS ORDERED: CYCLOBENZAPRINE10 MG PO (03:54)
[2023-01-25 05:23] VITALS: BP 169/85
[2023-01-25 05:30] VITALS: BP 169/85
== END 2023-01-25 04:30 | disposition home or self-care (01) ==
LOC: ED 23:27
PROVIDERS: Emergency Medicine
DX: M62.838 Other muscle spasm (principal); I10 Essential (primary) hypertension; E78.5 Hyperlipidemia, unspecified; K21.9 Gastro-esophageal reflux disease without esophagitis; M54.9 Dorsalgia, unspecified; G89.29 Other chronic pain